=== PATIENT | male | born 1960 | race Two or more races ===

== ENCOUNTER 2017-11-12 19:58 | Emergency (ER) | payer SELFPAY ==
[~2017-11-12] VITALS: Ht 180.3 cm; Wt 68.0 kg
[2017-11-12 23:26] LABS: CHLORIDE 97 mEq/L (98-107)
[2017-11-12 23:27] LABS: HEMATOCRIT. 28.9 % (42.0-52.0); HEMOGLOBIN. 8.9 g/dL (14.0-18.0); MEAN CORPUSCULAR HEMOGLOBIN 19.5 pg (28.0-32.0); MEAN CORPUSCULAR VOLUME 63.6 fL (80.0-94.0); MEAN PLATELET VOLUME 6.6 fl (7.4-10.4); PLATELET 417 x1000/uL (130-400); RED BLOOD CELL COUNT 4.55 mill/uL (4.7-6.1); RED CELL DISTRIBUTION WIDTH 20.5 % (11.6-14.6)
[2017-11-13 01:26] LABS: PLATELET ESTIMATE NORMAL
[2017-11-13 02:11] VITALS: BP 149/89
== END 2017-11-13 02:00 | disposition home or self-care (01) ==
LOC: ER 19:58
DX: R11.2 Nausea with vomiting, unspecified (principal); D64.9 Anemia, unspecified; R00.0 Tachycardia, unspecified; I67.1 Cerebral aneurysm, nonruptured
CPT/HCPCS: 36415; 80053; 83690; 85025; 99284; Z7610